=== PATIENT | female | born 2000 | race Two or more races ===

== ENCOUNTER 2020-10-15 12:18 | Emergency (ER) | payer MEDICAID, OTHER ==
[~2020-10-15] VITALS: Ht 157.5 cm; Wt 90.7 kg
[2020-10-15 15:02] VITALS: BP 123/85
== END 2020-10-15 15:38 | disposition home or self-care (01) ==
LOC: ER 12:18
DX: J20.9 Acute bronchitis, unspecified (principal)
CPT/HCPCS: 71045

== ENCOUNTER 2021-04-14 09:29 | Emergency (ER) | payer MEDICAID ==
[~2021-04-14] VITALS: Ht 160 cm; Wt 95.3 kg
[2021-04-14 10:54] VITALS: BP 138/85
[2021-04-14] MEDS ORDERED: cefTRIAXone SOD 1,000 MG VL IM ONE (12:45)
[2021-04-14] MEDS ORDERED: PROM1SOL4 PO (13:02)
[2021-04-14] MEDS ORDERED: METH4PAK PO (13:02)
== END 2021-04-14 13:15 | disposition home or self-care (01) ==
LOC: ER 09:29
DX: U07.1 COVID-19 (principal); J03.90 Acute tonsillitis, unspecified; J20.9 Acute bronchitis, unspecified; J45.909 Unspecified asthma, uncomplicated
CPT/HCPCS: 71045; 96372; 99283; J0696

== ENCOUNTER → 2021-07-16 | Outpatient (CLI) | payer MEDICAID ==
[~2021-07-16] MED LIST: METH4PAK PO; PROM1SOL4 PO
== END | disposition home or self-care (01) ==
LOC: Rad HDHVI 08:06
PROVIDERS: ATTEND Internal Medicine Cardiovascular Disease
DX: I10 Essential (primary) hypertension (principal); R06.02 Shortness of breath
CPT/HCPCS: 93306